=== PATIENT | female | born 1985 | race Caucasian/White ===

== ENCOUNTER 2024-04-29 19:06 | Emergency (ER) | payer SELFPAY ==
[2024-04-29 19:09] VITALS: BP 120/89
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
== END 2024-04-29 21:04 | disposition home or self-care (01) ==
LOC: EMR 19:06
PROVIDERS: EMERGENCY PHYSICIAN Emergency Medicine; FAMILY PHYSICIAN Internal Medicine
DX: S16.1XXA Strain of muscle, fascia and tendon at neck level, initial encounter (principal); S39.012A Strain of muscle, fascia and tendon of lower back, initial encounter; V49.40XA Driver injured in collision with unspecified motor vehicles in traffic accident, initial encounter
CPT/HCPCS: 99282